=== PATIENT | female | born 1965 | race Caucasian/White ===

== ENCOUNTER → 2019-03-07 14:49 | Outpatient (BNVA) | payer MEDICAID, SELFPAY | PROVIDERS: Family Provider Family Medicine; PCP Family Medicine; Visit Provider Social Worker | DX: F40.10 Social phobia, unspecified (principal); F33.3 Major depressive disorder, recurrent, severe with psychotic symptoms; F43.12 Post-traumatic stress disorder, chronic | CPT/HCPCS: 90834 ==

== ENCOUNTER → 2019-04-15 13:47 | Outpatient (BNVA) | payer MEDICAID, SELFPAY | PROVIDERS: Family Provider Family Medicine; PCP Family Medicine; Visit Provider Nurse Practitioner Psychiatric/Mental Health | DX: F43.12 Post-traumatic stress disorder, chronic (principal); F40.11 Social phobia, generalized; F33.3 Major depressive disorder, recurrent, severe with psychotic symptoms | CPT/HCPCS: 99214 ==

== ENCOUNTER → 2019-04-29 14:47 | Outpatient (BNVA) | payer MEDICAID, SELFPAY | PROVIDERS: Family Provider Family Medicine; PCP Family Medicine; Visit Provider Social Worker | DX: F40.10 Social phobia, unspecified (principal); F33.3 Major depressive disorder, recurrent, severe with psychotic symptoms; F43.12 Post-traumatic stress disorder, chronic | CPT/HCPCS: 90834 ==

== ENCOUNTER → 2019-06-25 08:12 | Outpatient (BNVA) | payer MEDICAID, SELFPAY | PROVIDERS: Family Provider Family Medicine; PCP Family Medicine; Visit Provider Nurse Practitioner Psychiatric/Mental Health | DX: F33.3 Major depressive disorder, recurrent, severe with psychotic symptoms (principal); F43.12 Post-traumatic stress disorder, chronic; F40.11 Social phobia, generalized | CPT/HCPCS: 99214 ==

== ENCOUNTER → 2019-07-01 08:25 | Outpatient (BNVA) | payer MEDICAID, SELFPAY | PROVIDERS: Family Provider Family Medicine; PCP Family Medicine; Visit Provider Social Worker | DX: F40.10 Social phobia, unspecified (principal); F33.3 Major depressive disorder, recurrent, severe with psychotic symptoms; F43.12 Post-traumatic stress disorder, chronic | CPT/HCPCS: 90834 ==

== ENCOUNTER → 2019-07-24 08:13 | Outpatient (BNVA) | payer MEDICAID, SELFPAY | PROVIDERS: Family Provider Family Medicine; PCP Family Medicine; Visit Provider Nurse Practitioner Psychiatric/Mental Health | DX: F33.3 Major depressive disorder, recurrent, severe with psychotic symptoms (principal); F43.12 Post-traumatic stress disorder, chronic; F40.11 Social phobia, generalized | CPT/HCPCS: 99214 ==

== ENCOUNTER → 2019-08-12 08:50 | Outpatient (BNVA) | payer MEDICAID, SELFPAY | PROVIDERS: Family Provider Family Medicine; PCP Family Medicine; Visit Provider Social Worker | DX: F40.11 Social phobia, generalized (principal); F43.12 Post-traumatic stress disorder, chronic; F33.3 Major depressive disorder, recurrent, severe with psychotic symptoms | CPT/HCPCS: 90834 ==

== ENCOUNTER → 2019-08-21 07:37 | Outpatient (BNVA) | payer MEDICAID, SELFPAY | PROVIDERS: Family Provider Family Medicine; PCP Family Medicine; Visit Provider Nurse Practitioner Psychiatric/Mental Health | DX: F33.3 Major depressive disorder, recurrent, severe with psychotic symptoms (principal); F43.12 Post-traumatic stress disorder, chronic; F40.11 Social phobia, generalized; F33.2 Major depressive disorder, recurrent severe without psychotic features; F41.1 Generalized anxiety disorder; Z79.899 Other long term (current) drug therapy | CPT/HCPCS: 99214 ==